=== PATIENT | female | born 1980 | race Caucasian/White ===

== ENCOUNTER 2024-04-30 10:59 | Emergency (ER) | payer OTHER, SELFPAY ==
[2024-04-30 11:01] VITALS: BP 123/87
--- NOTE | 2024-04-30 11:48 | ED.MUSCINJ ---
HPI-Injury
General
Chief Complaint: Fall
Source: patient
Exam Limitations: none
Time Seen by Provider: 04/30/24 11:08
History of Present Illness-Injury
Initial Injury comments:
44-year-old female with history of TBI presents from [place] where she lives after fall getting out of the car. She struck her face on something and they noticed a laceration to the right cheek. Mother who is accompanying her currently states
she is at her neurologic baseline. Initial triage reports that she injured her right arm and knee however patient is denying pain.
Phy Exam
Physical Exam
Physical Exam:
General: Well-appearing female no acute respiratory distress
HEENT: Normocephalic. Laceration noted to the right cheek in the vertical direction measuring 1.5 cm in length. The wound edges around 3 to 4 mm. Pupils are equal round reactive to light mild surrounding ecchymosis of the laceration.
Facial bones are nontender without deformity
Neurologic exam: Alert responsive and follows commands appropriately. At her neurologic baseline per the mother
Musculoskeletal exam: The spine is nontender. Good range of motion to the right arm and leg no tenderness noted
MDM/Problems Addressed
Differential Diagnosis Includes:
Laceration to the right cheek. This was irrigated copiously with saline anesthetized in a local fashion using 1% lidocaine and closed using 6-0 Prolene sutures in a simple erupted fashion. A total of 3 sutures were required to provide wound edge
approximation and hemostasis. Antibacterial ointment and a Band-Aid was applied. Wound care instructions were given.
Discussed with mother option for CT or imaging of the face to evaluate for any underlying fracture. Mother hesitant given the numerous amounts of studies she has had. I think this is reasonable not to have CT today given the low energy mechanism
and normal neurologic baseline
*Critical Care Note
Total Time (30-74mins, 75-104mins- exclusive of procedures): Not Applicable
ED Attending Note
-
Portions of this chart may have been created with voice recognition software.� Occasional wrong word or��sound alike� substitutions may have occurred due to the inherent limitations of voice recognition software.
Discharge Plan
Departure
Patient Disposition: Home (Routine Discharge)
Date of Disposition: 04/30/24
Time of Disposition: 11:52
Patient with high blood pressure during this ER visit?: No
Discharge Problem:
Laceration
Instructions: Laceration Repair With Stitches (DC)
Referrals:
Emerald Hayward MD [Family Provider] -
Activity Restrictions/Additional Instructions:
Apply antibacterial ointment to the wound daily. Have sutures removed in 5 days. Return if needed other
Interventions
Interventions:
*Risk Screen - Suicide Last Done: 04/30/24 11:01
*General Assessment Last Done: 04/30/24 11:01
*ED COVID-19 Vaccine History Last Done: 04/30/24 11:01
ED-Musculoskeletal Assessment Last Done: 04/30/24 11:15
ED- Neurological Assessment Last Done: 04/30/24 11:15
ED-Skin Assessment Last Done: 04/30/24 11:15
Discharge Date and Time
Print Language: MAORI
== END 2024-04-30 12:19 | disposition home or self-care (01) ==
LOC: EMR 10:59
PROVIDERS: EMERGENCY PHYSICIAN Emergency Medicine; FAMILY PHYSICIAN Internal Medicine
DX: S01.411A Laceration without foreign body of right cheek and temporomandibular area, initial encounter (principal); W22.8XXA Striking against or struck by other objects, initial encounter
CPT/HCPCS: 99282; 12011